=== PATIENT | female | born 1960 | race Caucasian/White ===

== ENCOUNTER 2018-03-17 01:07 | Outpatient (CLI) | payer BC, SELFPAY ==
--- NOTE | 2018-03-17 09:15 | DI.MRI_ITS ---
SYMPTOMS/DIAGNOSIS: FAMILY H/O CEREBRAL ANEURYSM, Z82.49 MRA OF THE BRAIN: Routine noncontrast MRA of the brain was performed. Comparison is 06/10/12. The distal internal carotid arteries are unremarkable without evidence of occlusion, aneurysm or significant stenosis. The anterior cerebral arteries are unremarkable without evidence of occlusion, aneurysm or significant stenosis. The middle cerebral arteries are unremarkable without evidence of occlusion, aneurysm or significant stenosis. The posterior cerebral arteries are unremarkable without evidence of occlusion, aneurysm or significant stenosis. The vertebral arteries and basilar artery are unremarkable without evidence of occlusion or aneurysm. IMPRESSION: Normal MRA of the brain.
== END 2018-03-17 01:27 ==
PROVIDERS: PCP Emergency Medicine; Visit Provider Emergency Medicine
DX: Z82.49 Family history of ischemic heart disease and other diseases of the circulatory system (principal)
CPT/HCPCS: 70544

== ENCOUNTER 2018-07-14 00:50 | Outpatient (CLI) | payer BC, SELFPAY ==
--- NOTE | 2018-07-14 15:35 | DI.MAMMO_ITS ---
SYMPTOM/DIAGNOSIS: SCREENING, Z12.31 MAMMOGRAMS: Mammograms were interpreted according to the usual protocol including computer analysis with CAD system, tomosynthesis and C view imaging. Comparison is made with prior examinations. Breast density, Category C. No suspicious masses or microcalcifications are seen. There is no definite evidence of malignancy. IMPRESSION: Negative mammogram. Routine screening is recommended. Category 1. MQSA ASSESSMENT OF FINDINGS: Negative. Category 1. Patient will receive a letter notifying them of these results. Bi-RADS category C. The breasts are heterogeneously dense, which may obscure small masses.
== END 2018-07-14 01:10 ==
PROVIDERS: PCP Emergency Medicine; Visit Provider Nurse Practitioner Women's Health
DX: Z12.31 Encounter for screening mammogram for malignant neoplasm of breast (principal)
CPT/HCPCS: 77063; 77067

== ENCOUNTER 2019-08-25 16:27 | Outpatient (REF) | payer BC, SELFPAY ==
--- NOTE | 2019-08-25 15:50 | PAPFT_PTH ---
PATIENT: Nydia Dowd LOC: [facility] U#:[id number] AGE/SX: 59/F ROOM: RE08/25/[address]: Shilpa Hernandez NP : 1960 BED: DIS: 08/25/2019 SPEC #: [id number] RECD: 08/26/19 12:46 STATUS: MICHELLE REMarley #: [id number] SAUL: 08/25/19 15:[address]: Shilpa Hernandez NP DEPT: [facility] Cytology RECD BY: Prema García ENTERED: 08/26/19 12:46 SP TYPE: PAPFT OTHR DR: Tim Huffman, DO Tissues: 1 - CX/ENDOCX FOR PAP SMEARS Procedures: PAP THIN PREP/UVM Screening Comments: [id number]
== END 2019-08-25 16:47 ==
LOC: LBN 16:27
PROVIDERS: PCP Emergency Medicine; Visit Provider Nurse Practitioner Women's Health
DX: Z12.4 Encounter for screening for malignant neoplasm of cervix (principal); R87.615 Unsatisfactory cytologic smear of cervix
CPT/HCPCS: 88142

== ENCOUNTER 2019-10-22 08:11 | Outpatient (CLI) | payer BC, SELFPAY ==
[2019-10-25 00:06] LABS: SARS-CoV-2 RNA Undetected (Undetected); SARS-CoV-2 Specimen Source Nasopharynx
== END 2019-10-22 08:31 ==
PROVIDERS: PCP Emergency Medicine; Visit Provider Emergency Medicine
DX: Z11.59 Encounter for screening for other viral diseases (principal)
CPT/HCPCS: U0003

== ENCOUNTER 2019-10-27 01:39 | Outpatient (CLI) | payer BC, SELFPAY ==
--- NOTE | 2019-10-27 06:15 | DI.MAMMO_ITS ---
EXAM: MAMMO SCREENING CLINICAL HISTORY: screening,z12.39 TECHNIQUE: Mammograms were interpreted according to the usual protocol including computer analysis w [employer] CAD system, tomosynthesis and C-view imaging. COMPARISON: 2010 through 2018 FINDINGS: The breasts are composed of heterogeneously dense fibroglandular densities, Breast Density category C . No suspicious masses or suspicious microcalcifications are seen. No skin thickening or abnormal axillary lymph nodes are seen. There has been no significant change from prior exams. IMPRESSION: BI-RADS Category 1: Negative mammogram Yearly screening mammography is recommended. Breast Density Category C, heterogeneously dense tissue which decreases the sensitivity of the mammog [place]. The mammogram demonstrates the patient's breast tissue is dense. Dense breast tissue is very common a nd is not abnormal but dense breast tissue can make it harder to find cancer on a mammogram. Also, de nse breast tissue may increase breast cancer risk. This information about the result of the mammogram report was provided to the patient to raise their awareness. Use this report when you speak with the patient about their risks for breast cancer, which includes their family history. At that time, you may recommend additional screening tests (Ultrasound or MRI) as they might be useful based on their r isk. A negative radiographic report should not delay biopsy if a dominant or clinically suspicious mass is present. Up to ten percent of cancers are not identified on mammography. A negative report may reinforce clinical impression. Adenosis and dense breasts may obscure an underlying neoplasm. False positive reports average 6 to 10%.
== END 2019-10-27 01:59 ==
PROVIDERS: PCP Emergency Medicine; Visit Provider Nurse Practitioner Women's Health
DX: Z12.31 Encounter for screening mammogram for malignant neoplasm of breast (principal); R92.2 Inconclusive mammogram
CPT/HCPCS: 77063; 77067

== ENCOUNTER 2020-01-21 10:11 | Outpatient (CLI) | payer BC, SELFPAY ==
[2020-01-25 23:59] LABS: Patient Race White; SARS-CoV-2 RNA Undetected (Undetected); SARS-CoV-2 Specimen Source Nasal
== END 2020-01-21 10:31 ==
PROVIDERS: PCP Emergency Medicine; Visit Provider Emergency Medicine
DX: Z20.828 Contact with and (suspected) exposure to other viral communicable diseases (principal)
CPT/HCPCS: U0003

== ENCOUNTER 2020-03-08 03:14 | Outpatient (CLI) | payer BC, SELFPAY ==
[2020-03-09 04:00] LABS: COVID-19 RT-PCR UVMMC Result Negative (Negative)
== END 2020-03-08 03:34 ==
PROVIDERS: PCP Emergency Medicine; Visit Provider Emergency Medicine
DX: Z20.828 Contact with and (suspected) exposure to other viral communicable diseases (principal)
CPT/HCPCS: U0003

== ENCOUNTER 2020-06-27 15:15 | Outpatient (REF) | payer BC, SELFPAY ==
[2020-06-27 21:05] LABS: Calculated LDL 90 mg/dL (<100); Cholesterol 192 mg/dL (<200); HDL Cholesterol 54 mg/dL (40-60); Triglyceride 241 mg/dL (<150)
[2020-06-27 21:13] LABS: Hemoglobin A1C 5.5 % (<5.7)
== END 2020-06-27 15:16 | disposition home or self-care (01) ==
LOC: LBN 15:15
PROVIDERS: PCP Emergency Medicine; Visit Provider Emergency Medicine
DX: Z00.00 Encounter for general adult medical examination without abnormal findings (principal); E11.9 Type 2 diabetes mellitus without complications; Z13.220 Encounter for screening for lipoid disorders
CPT/HCPCS: 80061; 83036

== ENCOUNTER 2020-11-07 15:09 | Outpatient (CLI) | payer BC, SELFPAY ==
--- NOTE | 2020-11-07 15:00 | DI.RAD_ITS ---
Exam(s) XR KNEE RT 4V AP,LAT,KARMEN,PAT EXAM: XR KNEE RT 4V AP,LAT,KARMEN,PAT CLINICAL HISTORY: s/p fall - pain and swelling right knee M25.561. TECHNIQUE: 2D digital imaging was performed. COMPARISON: No exams were available for comparison FINDINGS: BONES: No acute fracture is present. No bony destructive lesion is seen. JOINTS: The knee is normally aligned. Small joint effusion. SOFT TISSUE: Normal. IMPRESSION: 1. No acute fracture or dislocation. 2. Small joint effusion. DATA REPOSITORY: RADIATION DOSE DELIVERED:
== END 2020-11-07 15:29 ==
PROVIDERS: PCP Emergency Medicine; Visit Provider Nurse Practitioner Family
DX: M25.561 Pain in right knee (principal); M25.461 Effusion, right knee
CPT/HCPCS: 73564

== ENCOUNTER 2021-03-20 00:53 | Outpatient (CLI) | payer BC, SELFPAY ==
--- NOTE | 2021-03-20 07:00 | DI.MAMMO_ITS ---
Exam(s) MAMMO SCREENING EXAM: MAMMO SCREENING CLINICAL HISTORY: screening,z12.39 TECHNIQUE: Mammograms were interpreted according to the usual protocol including computer analysis w [facility] CAD system, tomosynthesis and C-view imaging. COMPARISON: FINDINGS: The breasts are heterogeneously dense. No dominant mass or clumped microcalcification is identified in either breast. The current examination is compared with previous examinations including October 27 and there has been no gross interval change in appearance in comparison with the prior studies. IMPRESSION: No specific evidence of malignancy at this time. Routine screening examinations are suggested at yea rly intervals in this age group according to the ACS ACR guidelines. BI-RADS Category 1 - Negative Breast Density - Category C - Heterogeneously dense
== END 2021-03-20 01:13 ==
PROVIDERS: PCP Emergency Medicine; Visit Provider Emergency Medicine
DX: Z12.31 Encounter for screening mammogram for malignant neoplasm of breast (principal); R92.8 Other abnormal and inconclusive findings on diagnostic imaging of breast
CPT/HCPCS: 77063; 77067

== ENCOUNTER 2021-07-06 02:08 | Outpatient (CLI) | payer BC, SELFPAY ==
[2021-07-06 13:12] LABS: Calculated LDL 129 mg/dL (<100); Cholesterol 216 mg/dL (<200); HDL Cholesterol 75 mg/dL (40-60); Triglyceride 62 mg/dL (<150)
== END 2021-07-06 02:09 | disposition home or self-care (01) ==
LOC: LOS 02:08
PROVIDERS: PCP Nurse Practitioner; Visit Provider Emergency Medicine
DX: E78.5 Hyperlipidemia, unspecified (principal)
CPT/HCPCS: 36415; 80061

== ENCOUNTER 2022-06-04 01:10 | Outpatient (CLI) | payer BC, SELFPAY ==
--- NOTE | 2022-06-04 06:15 | DI.MAMMO_ITS ---
Exam(s) MAMMO SCREENING EXAM: MAMMO SCREENING CLINICAL HISTORY: screening,z12.39 TECHNIQUE: Bilateral full field digital CC and MLO mammographic images were obtained with 3D tomosyn thesis and utilizing computer aided detection (CAD). COMPARISON: Available for comparison. FINDINGS: Masses/Architectural Distortion: None seen. Microcalcifications: No suspicious pleomorphic-type are seen. Skin Thickening/Nipple Retraction: None. IMPRESSION: 1. No significant interval change with no specific features of malignancy noted. 2. Unless there is more urgent need, screening mammography is recommended, as per [employer] [place] [employer] guidelines. BI-RADS Category 1 - Negative Breast Density - Category C - Heterogeneously dense Breast density category C or D implies that the patient has dense breast tissue. Dense breast tissue is very common and is not abnormal but dense breast tissue can make it harder to find cancer on a ma mmogram. Also, dense breast tissue may increase their breast cancer risk. This information about the result of the mammogram report was provided to the patient to raise their awareness. Use this report when you speak with the patient about their risks for breast cancer, which includes their family hist ory. At that time, you may recommend for more screening tests (Ultrasound or MRI) as they might be us eful based on their risk. A negative radiographic report should not delay biopsy if a dominant or clinically suspicious mass is present. Up to ten percent of cancers are not identified on mammography. A negative report may reinforce clinical impression. Adenosis and dense breasts may obscure an underlying neoplasm. False positive reports average 6 to 10%. Patient will receive a letter notifying them of these results.
== END 2022-06-04 01:30 ==
LOC: DI 01:10
PROVIDERS: PCP Nurse Practitioner Family; Visit Provider Nurse Practitioner Family
DX: Z12.31 Encounter for screening mammogram for malignant neoplasm of breast (principal)
CPT/HCPCS: 77063; 77067

== ENCOUNTER 2022-07-10 02:37 | Outpatient (CLI) | payer BC, SELFPAY ==
[2022-07-10 12:31] LABS: HCT 38.2 % (36.0-46.0); HGB 11.9 g/dL (11.2-15.7); MCHC 31.2 % (32.0-36.0); MCV 87 fL (80-95); MPV 10.6 fL (8.0-11.0); Platelet Count 238 10^3/uL (130-400); RBC 4.41 10^6/uL (3.93-5.22); RDW 15.9 % (11.7-14.6); RDW-SD 50.7 fL; WBC 2.99 10^3/uL (4.4-10.8)
[2022-07-10 14:03] LABS: ALT 33 U/L (14-59); AST 23 U/L (15-37); Albumin 3.5 g/dL (3.4-5.0); Alkaline Phosphatase 81 U/L (46-116); Anion Gap 7.5 mmol/L (3-11); BUN 16 mg/dL (7-18); Bilirubin, Total 0.3 mg/dL (0.2-1.0); CO2 29.5 mmol/L (21.0-32.0); CREATININE 0.8 mg/dL (0.55-1.02); Calcium 8.7 mg/dL (8.5-10.1); Calculated LDL 84 mg/dL (<100); Chloride 107 mmol/L (98-107); Cholesterol 185 mg/dL (<200); Estimated GFR 83.26 (mL/min/1.73m2); Glucose 84 mg/dL (74-106); HDL Cholesterol 91 mg/dL (40-60); Potassium 4.3 mmol/L (3.5-5.1); Sodium 144 mmol/L (136-145); Total Protein 6.7 g/dL (6.4-8.2); Triglyceride 52 mg/dL (<150)
== END 2022-07-10 02:38 | disposition home or self-care (01) ==
LOC: LOS 02:37
PROVIDERS: PCP Nurse Practitioner Family; Visit Provider Nurse Practitioner Family
DX: Z00.00 Encounter for general adult medical examination without abnormal findings (principal); E78.5 Hyperlipidemia, unspecified; F32.9 Major depressive disorder, single episode, unspecified
CPT/HCPCS: 36415; 80053; 80061; 85027

== ENCOUNTER → 2023-07-17 00:38 | Outpatient (CLI) | payer BC, SELFPAY ==
--- NOTE | 2023-07-17 12:38 | DI.MAMMO_ITS ---
Exam(s) MAMMO SCREENING EXAM: MAMMO SCREENING CLINICAL HISTORY: screening,z12.39 TECHNIQUE: Bilateral full field digital CC and MLO mammographic images were obtained with 3D tomosyn thesis and utilizing computer aided detection (CAD). COMPARISON: Available for comparison. FINDINGS: Masses/Architectural Distortion: None seen. Microcalcifications: No suspicious pleomorphic-type are seen. Skin Thickening/Nipple Retraction: None. IMPRESSION: 1. No significant interval change with no specific features of malignancy noted. 2. Unless there is more urgent need, screening mammography is recommended, as per [employer] [place] [employer] guidelines. BI-RADS Category 1 - Negative Breast Density - Category C - Heterogeneously dense Breast density category C or D implies that the patient has dense breast tissue. Dense breast tissue is very common and is not abnormal but dense breast tissue can make it harder to find cancer on a ma mmogram. Also, dense breast tissue may increase their breast cancer risk. This information about the result of the mammogram report was provided to the patient to raise their awareness. Use this report when you speak with the patient about their risks for breast cancer, which includes their family hist ory. At that time, you may recommend for more screening tests (Ultrasound or MRI) as they might be us eful based on their risk. A negative radiographic report should not delay biopsy if a dominant or clinically suspicious mass is present. Up to ten percent of cancers are not identified on mammography. A negative report may reinforce clinical impression. Adenosis and dense breasts may obscure an underlying neoplasm. False positive reports average 6 to 10%. Patient will receive a letter notifying them of these results.
== END ==
PROVIDERS: PCP Nurse Practitioner Family; Visit Provider Nurse Practitioner Family
DX: Z12.31 Encounter for screening mammogram for malignant neoplasm of breast (principal)
CPT/HCPCS: 77063; 77067

== ENCOUNTER 2024-07-06 00:33 | Outpatient (CLI) | payer BC, SELFPAY ==
[2024-07-06 12:52] LABS: HCT 41.6 % (36.0-46.0); HGB 12.9 g/dL (11.2-15.7); MCH 27.3 pg (27.0-33.0); MCV 88 fL (80-95); MPV 10.1 fL (8.0-11.0); Platelet Count 261 10^3/uL (130-400); RBC 4.72 10^6/uL (3.93-5.22); RDW 15.8 % (11.7-14.6); RDW-SD 51.2 fL; WBC 3.71 10^3/uL (4.4-10.8)
[2024-07-06 13:34] LABS: ALT 25 U/L (14-59); AST 20 U/L (15-37); Albumin 3.6 g/dL (3.4-5.0); Alkaline Phosphatase 85 U/L (46-116); Anion Gap 8.2 mmol/L (3-11); BUN 14 mg/dL (7-18); Bilirubin, Total 0.4 mg/dL (0.2-1.0); CO2 28.8 mmol/L (21.0-32.0); CREATININE 0.6 mg/dL (0.55-1.02); Calcium 8.9 mg/dL (8.5-10.1); Calculated LDL 174 mg/dL (<100); Chloride 109 mmol/L (98-107); Cholesterol 283 mg/dL (<200); Estimated GFR 100.17 (mL/min/1.73m2); Glucose 90 mg/dL (74-106); HDL Cholesterol 89 mg/dL (>or=50); Potassium 4.4 mmol/L (3.5-5.1); Sodium 146 mmol/L (136-145); TSH (W/Ref FT4) 1.08 uIU/mL (0.36-3.74); Total Protein 6.9 g/dL (6.4-8.2); Triglyceride 100 mg/dL (<150)
== END 2024-07-06 00:34 | disposition home or self-care (01) ==
LOC: LOS 00:33
PROVIDERS: PCP Nurse Practitioner Family; Visit Provider Nurse Practitioner Family
DX: Z00.00 Encounter for general adult medical examination without abnormal findings (principal); F32.9 Major depressive disorder, single episode, unspecified; E78.5 Hyperlipidemia, unspecified
CPT/HCPCS: 36415; 80053; 80061; 85027; 84443

== ENCOUNTER 2024-08-12 02:11 | Outpatient (CLI) | payer BC, SELFPAY ==
--- NOTE | 2024-08-12 07:45 | DI.MAMMO_ITS ---
Exam(s) MAMMO SCREENING EXAM: MAMMO SCREENING CLINICAL HISTORY: screening,z12.39 TECHNIQUE: Bilateral full field digital CC and MLO mammographic images were obtained with 3D tomosyn thesis and utilizing computer aided detection (CAD). COMPARISON: Available for comparison. FINDINGS: Masses/Architectural Distortion: No suspicious masses or areas of architectural distortion are presen t. Microcalcifications: No suspicious pleomorphic-type are seen. Skin Thickening/Nipple Retraction: None. IMPRESSION: 1. No significant interval change with no specific features of malignancy noted. 2. Unless there is more urgent need, screening mammography is recommended, as per [place] [employer] guidelines. BI-RADS Category 1 - Negative Breast Density - Category C - The breast are heterogeneously dense, which may obscure small masses. Breast density Category C or D implies that the patient has dense breast tissue. Dense breast tissue can make it harder to find cancer on a mammogram. Dense breast tissue is also associated with an incr eased risk of breast cancer. This information about the result of the mammogram report was provided to the patient to raise their awareness. Use this report when you speak with the patient about their risks for breast cancer, which includes their family history. At that time, you may recommend additional screening tests (Ultrasoun d or MRI) as these tests may add significant information. A negative radiographic report should not delay biopsy if a dominant or clinically suspicious mass is present. Up to ten percent of cancers are not identified on mammography. A negative report may reinforce clinical impression. Adenosis and dense breasts may obscure an underlying neoplasm. False positive reports average 6 to 10%. Patient will receive a letter notifying them of these results.
== END 2024-08-12 02:31 ==
LOC: DI 02:11
PROVIDERS: PCP Nurse Practitioner Family; Visit Provider Nurse Practitioner Family
DX: Z12.31 Encounter for screening mammogram for malignant neoplasm of breast (principal); R92.333 Mammographic heterogeneous density, bilateral breasts
CPT/HCPCS: 77063; 77067

== ENCOUNTER 2025-01-07 16:06 | Emergency (ER) | payer BC, SELFPAY ==
--- NOTE | 2025-01-07 16:00 | RT.EKG_ITS ---
APPROVED REPORT Exam: Resting ECG Reason for Exam: chest pain Patient Location: E HR:63 bpm ECG Measurements Heart Rate 63 AXIS NH 147 P 27 QRSd 92 QRS -4 QT 414 T 67 QTc 426 Conclusion Sinus rhythm...normal P axis, V-rate 60- 99 Probable left atrial enlargement...P >50mS, <-0.10mV V1 Consider anteroseptal infarct...Q >30mS, dimin R, V1-V2 No STEMI
[2025-01-07 16:08] VITALS: BP 158/104; PULSE 77; RESP 18; TEMP 36.4; O2SAT 97
[2025-01-07 17:30] VITALS: RESP 20
[2025-01-07] MEDS: Aspirin 81 MG CHEW 324 MG CH (17:35)
[2025-01-07 17:43] LABS: Abs Immature Grans 0.01 10^3/uL (0.0-0.06); HCT 39.8 % (36.0-46.0); HGB 12.7 g/dL (11.2-15.7); Immature Grans % 0.2 %; MCH 26.8 pg (27.0-33.0); MCHC 31.9 % (32.0-36.0); MCV 84 fL (80-95); MPV 9.8 fL (8.0-11.0); Platelet Count 260 10^3/uL (130-400); RBC 4.74 10^6/uL (3.93-5.22); RDW 14.8 % (11.7-14.6); RDW-SD 45.2 fL; WBC 4.17 10^3/uL (4.4-10.8)
[2025-01-07 18:05] LABS: ALT 29 U/L (14-59); AST 24 U/L (15-37); Albumin 3.7 g/dL (3.4-5.0); Alkaline Phosphatase 100 U/L (46-116); Anion Gap 10.7 mmol/L (3-11); BUN 18 mg/dL (7-18); Bilirubin, Total 0.3 mg/dL (0.2-1.0); CO2 26.3 mmol/L (21.0-32.0); Calcium 9.0 mg/dL (8.5-10.1); Chloride 105 mmol/L (98-107); Glucose 95 mg/dL (74-106); Lipase 32 U/L (<78); Magnesium 2.1 mg/dL (1.8-2.4); Potassium 3.7 mmol/L (3.5-5.1); Sodium 142 mmol/L (136-145); Total Protein 7.2 g/dL (6.4-8.2)
[2025-01-07 18:06] LABS: Troponin I < 4 ng/L (<or=51)
[2025-01-07 18:55] VITALS: BP 146/98; PULSE 68; RESP 16; O2SAT 98
[2025-01-07 19:02] LABS: D-Dimer 422 ng/mlFEU (<500)
[2025-01-07 19:05] VITALS: BP 138/92; RESP 16; O2SAT 99
[2025-01-07 19:06] LABS: Troponin I < 4 ng/L (<or=51)
--- NOTE | 2025-01-07 19:42 | DI.RAD_ITS ---
Exam(s) XR CHEST 2V PA LATERAL EXAM: XR CHEST 2V PA LATERAL CLINICAL HISTORY: chest pain. TECHNIQUE: 2D digital imaging was performed. COMPARISON: No exams were available for comparison FINDINGS: 2 views: Heart size is normal. The mediastinum is not widened. Lungs are clear. No infiltrates nor pleural effusions. IMPRESSION: No acute pulmonary findings. DATA REPOSITORY: RADIATION DOSE DELIVERED:
--- NOTE | 2025-01-07 19:46 | W.ED.GENAD ---
Discharge Plan Disposition Patient Disposition: Home Condition: Stable Discharge Details Clinical Impression: Chest pain of uncertain etiology Primary Care Provider: Richa Samuel ED Provider: Edilberto Salguero Home Meds and New Rx's Prescriptions: Continued pravastatin 20 mg tablet 20 mg PO QHS Qty: 90 3RF cholecalciferol (vitamin D3) 25 mcg (1,000 unit) capsule 25 mcg PO DAILY aspirin [Aspir-Low] 81 MG tablet,delayed release (DR/EC) 1 tab PO DAILY Discharge Instructions Instructions: Chest Pain, Adult ED Additional Instructions: You were seen in the emergency department for your chest pain, your cardiac workup was negative there is no blood clot in your lungs and your imaging shows no major abnormalities, my recommendations are to seek a referral to cardiology from your primary care provider, continue your activities as tolerated, if you have worsening chest pain especially with shortness of breath, feelings of near fainting, sweating or any other emergent concerns please return to the ER at once. Referrals: Richa Samuel NP [Primary Care Provider, Medicine] Discharge Data Discharge Date/Time-TO BE ENTERED AT DEPARTURE: 01/07/25 21:08 HPI General Date/Time Provider Initiated Documentation: 01/07/25 16:15. HPI Narrative: 64 year-old female presents to ED today by POV/ambulating with a chief complaint of L chest pain around her breast, and some shortness of breath with onset today. Quality described as sharp L chest pain, no radiation to fever, cough, dizziness, diaphoresis, nausea/vomiting, abdominal pain. Severity is described as moderate. Palliating factors include nothing specific attempted. Provoking factors include nothing specific. Events leading up to the incident/Associated Symptoms: Patient endorses FHx of cardiac disease. Patient not anticoagulated. Related Data Home Medications Medication Instructions Recorded Confirmed aspirin 81 mg tablet,delayed 1 tab PO DAILY 05/13/14 01/07/25 release (Aspir-Low) cholecalciferol (vitamin D3) 25 25 mcg PO DAILY 07/08/22 01/07/25 mcg (1,000 unit) capsule pravastatin 20 mg tablet 20 mg PO QHS #90 tabs 07/12/24 01/07/25 Previous Rx's Medication Instructions Recorded pravastatin 20 mg tablet 20 mg PO QHS #90 tabs 07/12/24 Allergies Allergy/AdvReac Type Severity Reaction Status Date / Time nalbuphine HCl (From Nubain) Allergy Severe STOPPED Verified 01/07/25 16:15 BREATHING codeine AdvReac Intermediate HALLUCINATI Verified 01/07/25 16:15 ONS oxycodone AdvReac Intermediate FLOATING Verified 01/07/25 16:15 FEELING General Stated Complaint: Chest Pain FRANCESCO: 3 Review of Systems All systems reviewed & are unremarkable except as noted in HPI and below Exam Narrative Exam Narrative: GENERAL APPEARANCE: Well-nourished, non-toxic, awake and alert, atraumatic, no acute distress. SKIN: Warm, pink, dry, intact, without rashes/lesions/ulcerations. HEAD: Normocephalic, atraumatic, normal hair distribution for gender/age. EYES: Normal conjunctiva, no exudates on lids/lashes. ENT: Nares patent, no circumoral cyanosis, no facial swelling NECK: Supple, trachea midline, painless cervical ROM. LUNGS/CHEST: Lungs CTA bilaterally, non-labored respirations, normal A/P diameter, symmetrical expansion, no chest wall deformity HEART (CV/PV): Regular rate and rhythm without murmur, no peripheral edema, no JVD. ABDOMEN: Soft, non-distended, no guarding. MSK: Normal ROM, no swelling/deformity to bilateral UEs or LEs, moving all extremities without weakness, no cyanosis, spine midline without tenderness, normal curvature. NEURO: Mental Status AAOx4 - alert to person, place, time, events No facial droop, no forehead involvement. Motor: No focal weakness - strength 5/5 in bilateral UEs and LEs, proximal and distal, symmetric. Sensory: sensation intact to light touch globally. Gait normal: patient ambulated without ataxia into ED room. PSYCH: euthymic, cooperative, pleasant, appropriate speech Course Vital Signs Vital signs: Vital Signs Temperature 36.4 C L 01/07/25 16:08 Pulse 77 01/07/25 16:08 Respiratory Rate 18 01/07/25 16:08 Blood Pressure 158/104 H 01/07/25 16:08 Pulse Oximetry 97 01/07/25 16:08 Temperature 36.4 C L 01/07/25 16:08 Temperature Source Temporal Artery Scan 01/07/25 16:08 Pulse 68 01/07/25 18:55 Respiratory Rate 16 01/07/25 19:05 Respiratory Effort Normal, Non-Labored 01/07/25 19:05 Respiratory Depth Normal 01/07/25 19:05 Respiratory Pattern Normal 01/07/25 19:05 Blood Pressure 138/92 H 01/07/25 19:05 Blood Pressure Mean 107 01/07/25 19:05 Blood Pressure Position Sitting 01/07/25 19:05 Pulse Oximetry 99 01/07/25 19:05 Oxygen Delivery Method Room Air 01/07/25 19:05 Oxygen Flow Rate 0 01/07/25 19:05 Pain Level 0 01/07/25 19:05 Lab/Test Results Lab/Test Results: Laboratory Tests Range/Units 01/07/25 01/07/25 17:30 18:35 WBC (4.4-10.8) 10^3/uL 4.17 L RBC (3.93-5.22) 10^6/uL 4.74 Hgb (11.2-15.7) g/dL 12.7 Hct (36.0-46.0) % 39.8 MCV (80-95) fL 84 MCH (27.0-33.0) pg 26.8 L MCHC (32.0-36.0) % 31.9 L RDW (11.7-14.6) % 14.8 H Plt Count (130-400) 10^3/uL 260 MPV (8.0-11.0) fL 9.8 Immature Gran % % 0.2 Neutrophils % % 62.1 Lymphocytes % % 27.8 Monocytes % % 7.2 Eosinophils % % 1.7 Basophils % % 1.0 Nucleated RBC % (0.0-0.3) % 0.0 Absolute Neutrophils (1.2-6.7) 10^3/uL 2.59 Absolute Lymphocytes (1.2-3.4) 10^3/uL 1.16 L Absolute Monocytes (0.1-0.8) 10^3/uL 0.30 Absolute Eosinophils (0.0-0.7) 10^3/uL 0.07 Absolute Basophils (0.0-0.2) 10^3/uL 0.04 D-Dimer (<500) ng/mlFEU 422 Sodium (136-145) mmol/L 142 Potassium (3.5-5.1) mmol/L 3.7 Chloride (98-107) mmol/L 105 Carbon Dioxide (21.0-32.0) mmol/L 26.3 Anion Gap (3-11) mmol/L 10.7 BUN (7-18) mg/dL 18 Creatinine (0.55-1.02) mg/dL 0.5 L Est GFR (CKD-EPI 2020) (mL/min/1.73m2) 104.67 Glucose (74-106) mg/dL 95 Calcium (8.5-10.1) mg/dL 9.0 Magnesium (1.8-2.4) mg/dL 2.1 Total Bilirubin (0.2-1.0) mg/dL 0.3 AST (15-37) U/L 24 ALT (14-59) U/L 29 Alkaline Phosphatase (46-116) U/L 100 Troponin I (<or=51) ng/L < 4 < 4 NT-Pro-B Natriuret Pep (<300) pg/mL 83 Total Protein (6.4-8.2) g/dL 7.2 Albumin (3.4-5.0) g/dL 3.7 Lipase (<78) U/L 32 Medical Decision Making This dictation utilizes [id number] dictation software and may contain unedited grammatical errors. 64 year-old female presents to ED today by POV/ambulating with a chief complaint of L chest pain around her breast, and some shortness of breath with onset today. Quality described as sharp L chest pain, no radiation to fever, cough, dizziness, diaphoresis, nausea/vomiting, abdominal pain. Severity is described as moderate. Palliating factors include nothing specific attempted. Provoking factors include nothing specific. Events leading up to the incident/Associated Symptoms: Patient endorses FHx of cardiac disease. Patients' medical history: lymphedema, hx abdominal hysterectomy. Family and social history: noncontributory. Pertinent exam findings / vital signs include benign cardiopulmonary exam, benign abdomen, nontoxic, neuro intact. Differential / pathologies of concern include ACS, pneumonia, PE, costochondritis, pleurisy, less likely pancreatitis or biliary colic or gastritis. Diagnostic studies of: - CBC, CMP, D-dimer, magnesium, serial troponins, BNP, lipase, EKG, x-ray chest. - CBC is unremarkable - D-dimer negative - CMP without actionable abnormality - Magnesium within normal limits - Serial troponins negative at 4 - BNP is 83 - Lipase negative - X-ray chest shows no acute pathology - EKG shows sinus rhythm at rate of 63 with P waves followed by a narrow complex QRS with normal axis, good R wave progression no ST changes of ischemia Interventions of: -324 mg chewable aspirin. ED Course/Assessment/Plan: 64-year-old female presents with chest pain without personal cardiac history with family history, her heart score is low risk, her cardiac workup is negative D-dimer is negative, x-ray chest shows no acute abnormality counseled on following up with primary care for possible referral to cardiology for stress echo, recommend continue activities as tolerated, take a break with any pains and return for any concerning chest pain or any other emergent concerns. Findings not consistent with ACS, PE, pneumonia, respiratory distress, pancreatitis or biliary colic. Disposition of chest pain of uncertain etiology. Patient verbalized understanding of the plan and return to ED criteria and engaged in shared decision making. Medical Records Medical records reviewed: Yes I reviewed the patient's medical records. Imaging Data Radiologic Study: Attestation: I personally reviewed and interpreted this imaging study as follows: Imaging: X-Ray Radiologist's impression: Exam: XR Chest Exam date and time: 01/07/2025 7:42 PM Age: 64 years old Clinical indication: Other: Chest pain TECHNIQUE: Imaging protocol: Radiologic exam of the chest. Views: 2 views. COMPARISON: No relevant prior studies available. FINDINGS: Lungs: Unremarkable. No consolidation. Pleural spaces: Unremarkable. No pleural effusion. No pneumothorax. Heart/Mediastinum: Unremarkable. No cardiomegaly. Bones/joints: Unremarkable. IMPRESSION: No acute findings. Dictated and Authenticated by: Jonny Childs MD. Lab Data Lab results reviewed: Yes I reviewed the patient's lab results. Labs: Laboratory Tests Range/Units 01/07/25 01/07/25 17:30 18:35 WBC (4.4-10.8) 10^3/uL 4.17 L RBC (3.93-5.22) 10^6/uL 4.74 Hgb (11.2-15.7) g/dL 12.7 Hct (36.0-46.0) % 39.8 MCV (80-95) fL 84 MCH (27.0-33.0) pg 26.8 L MCHC (32.0-36.0) % 31.9 L RDW (11.7-14.6) % 14.8 H Plt Count (130-400) 10^3/uL 260 MPV (8.0-11.0) fL 9.8 Immature Gran % % 0.2 Neutrophils % % 62.1 Lymphocytes % % 27.8 Monocytes % % 7.2 Eosinophils % % 1.7 Basophils % % 1.0 Nucleated RBC % (0.0-0.3) % 0.0 Absolute Neutrophils (1.2-6.7) 10^3/uL 2.59 Absolute Lymphocytes (1.2-3.4) 10^3/uL 1.16 L Absolute Monocytes (0.1-0.8) 10^3/uL 0.30 Absolute Eosinophils (0.0-0.7) 10^3/uL 0.07 Absolute Basophils (0.0-0.2) 10^3/uL 0.04 D-Dimer (<500) ng/mlFEU 422 Sodium (136-145) mmol/L 142 Potassium (3.5-5.1) mmol/L 3.7 Chloride (98-107) mmol/L 105 Carbon Dioxide (21.0-32.0) mmol/L 26.3 Anion Gap (3-11) mmol/L 10.7 BUN (7-18) mg/dL 18 Creatinine (0.55-1.02) mg/dL 0.5 L Est GFR (CKD-EPI 2020) (mL/min/1.73m2) 104.67 Glucose (74-106) mg/dL 95 Calcium (8.5-10.1) mg/dL 9.0 Magnesium (1.8-2.4) mg/dL 2.1 Total Bilirubin (0.2-1.0) mg/dL 0.3 AST (15-37) U/L 24 ALT (14-59) U/L 29 Alkaline Phosphatase (46-116) U/L 100 Troponin I (<or=51) ng/L < 4 < 4 NT-Pro-B Natriuret Pep (<300) pg/mL 83 Total Protein (6.4-8.2) g/dL 7.2 Albumin (3.4-5.0) g/dL 3.7 Lipase (<78) U/L 32 Quality:[facility] Health Related Social Needs: Health related social needs details NA PFSH All Active Problems (Updated 01/07/25 @ 20:41 by OCTAVIA Morin) Chest pain of uncertain etiology (Acute) COVID-19 (Acute) 09/24/21 Vaccinated, booster x2 Mass in armpit (Acute) Mass (Acute) Encounter for annual physical exam (Acute) Depression (Chronic) Grief (Chronic) Conductive hearing loss of left ear with unrestricted hearing of right ear (Acute) Mixed stress and urge urinary incontinence (Acute) Tubular adenoma of colon (Acute ~07/07/18) 07/07/18 [facility] [place]- Primary malignant neoplasm of cervix (Acute 02/06/90) Urge incontinence (Acute 04/17/16) start w/ bladder retraining. This has not been helpful Urology referral 06/2018 Lymphedema of right lower extremity (Acute 12/27/15) secondary to inguinal node dissection Hyperlipidemia (Acute) VAP XOL testing showed light fluffy LDL particles, indicating low risk. pt on baby ASA daily History of total abdominal hysterectomy (Acute) pt had radical hysterectomy for cervical cancer; left ovary remains Atrophic vaginitis (Acute 04/07/15) Medical History (Updated 01/07/25 @ 20:41 by OCTAVIA Morin) Family history of premature CAD (12/27/15) Father CT age 49 Brother with CT age 50 Family history of cerebral aneurysm Mother and sister. Neg MRI Elevated lipids took simvistatin with good results. stopped 2011. on daily ASA. 2013 results of LDL increasing. resumed Simvistatin Adenocarcinoma of cervix 1990. Dx at time of PP pap. Poorly differentiated. S/P radical hysterectomy with XRT and brachytherapy. No recurrences. Had transposition of one ovaryat time of surgery. Surgical History History of hysterectomy with unilateral oophorectomy 1990, left ovary remains Colonoscopy - MAC 2012 at [facility] [place]. Issues with effects of XRT/brachytherapy so needed procedure under anesthesia. Family History (Updated 07/14/24 @ 12:20 by Brandie Carrizales) Father , AGE 49 Myocardial infarction Heart disease Mother , AGE 79 Arterial aneurysm Sister Alcohol use disorder Dementia Sister , Age 66 Dementia Brother , Age 60 Thyroid disorder Heart disease Hypertension Son No problems noted. Maternal Grandmother Cancer skin Maternal Grandfather No problems noted. Paternal Grandmother No problems noted. Paternal Grandfather No problems noted. Social History (Updated 07/14/24 @ 12:18 by Brandie Carrizales) Smoking/Tobacco Use Status: Never Tobacco: How many years used: 0 Second Hand Exposure: Yes Smoking risk assessment performed?: Yes Alcohol Intake: current Alcohol Intake frequency: holidays/special occasions only Alcohol type: beer Drug use: Never Substance use type: does not use Adopted: No Caregiver/Support person: No Household members: none Housing: house Number of Children: 1 number of grandchildren: 0 Communication Needs: None Education Level: college Details: Masters Do you need help understanding health information?: Rarely current occupation: Retired Pets and animals: No Sexually active: No Do you think of yourself as: straight/heterosexual Current gender identity: female What is your relationship status?: How often do you talk on the phone with friends or family?: three or more times per week How often do you get together with friends or relatives?: three or more times per week How often do you attend faith or confucianism services?: 1-3 times per year Do you belong to any clubs or organized social groups?: yes Panel score (0-1 are the most socially isolated patients): 2 What type of physical activity do you participate in: walking and yoga Duration: 30-45 minutes/day Frequency: 3-4 times per week Meghan/Zoroastrian: Druze Special meghan needs: No Agree to transfusion: Yes Seatbelt use: always Helmet use: Yes Helmet use: always Drive intox or ride w/intox bull driver: No Working smoke detector in home: Yes Carbon monox detector in home: Yes Firearms in home: No Do you feel safe at home: Yes Victim of physical abuse: No Victim of emotional abuse: No Victim of sexual abuse: No Would you like helpful sources: No Female Reproductive History Menstrual Menopause type: surgical History History 1 Para 1 Hx # Term Pregnancies Multiple births Hx # Pregnancies Ectopic pregnancies AB induced Hx Number of Living Children AB spontaneous
[2025-01-07 21:03] VITALS: BP 162/105; PULSE 83; RESP 16; TEMP 36.6; O2SAT 99
== END 2025-01-07 21:08 | disposition home or self-care (01) ==
PROVIDERS: Emergency Provider Physician Assistant; PCP Nurse Practitioner Family
DX: R07.9 Chest pain, unspecified (principal); R03.0 Elevated blood-pressure reading, without diagnosis of hypertension; Z82.49 Family history of ischemic heart disease and other diseases of the circulatory system
CPT/HCPCS: 99284 ×2; 36415; 80053; 83690; 93005; 71046; 83735; 83880; 84484; 85025; 85379; 93010

== ENCOUNTER → 2025-01-17 02:31 | Outpatient (CLI) | payer BC, SELFPAY ==
--- NOTE | 2025-01-17 05:48 | ETT_ITS ---
APPROVED REPORT Exam: Exercise Treadmill Patient Location: Out-Patient Room/Bed: Stress Nurse: Gayle Lindo RN Ordering Provider:MILDRED MCCOY, Contact Number: [phone] BMI: 20.22 Baseline Rhythm: Sinus Rhythm Indications: Chest pain Medical History Medical History: Depression, HLD, family hx of CAD, radical hysterectomy (cervical cx) Cardiac Medications: Aspirin, pravastatin Allergies: Oxycodone, codeine, nalbuphine HCl Cardiac Risk Factors: Family hx, HTN, HLD Previous Cardiac Procedures: None Pretest Chest Pain Characteristics: None Exercise History: Physically active Physical Disabilities: None Lung Sounds: Clear to auscultation Heart Sounds: Regular Stress Test Details Test: Exercise stress testing was performed using a Lang protocol. Rest Stress HR Resting HR Supine: 62 bpm Max Heart Rate (APMHR): 156 bpm Resting HR Standin bpm Target HR (85% APMHR): 133 bpm Max HR Achieved: 154 bpm % of APMHR: 99 Recovery HR: 86 bpm HR response to stress: Normal HR response to stress BP Resting BP Supine: 112/84 mmHg Resting BP Standin/88 mmHg Max BP: 186/90 mmHg Recovery BP: 120/88 mmHg BP response to stress: Normal blood pressure response to stress. ECG Resting ECG: Sinus Rhythm Ectopy: None Stress ECG: Sinus Tachycardia ST Change: No significant ST segment changes noted Arrhythmia: None Recovery ECG: Sinus Rhythm Recovery ST Change: No significant ST segment changes noted Recovery Arrhythmia: None Clinical Reason for Termination: Target HR Achieved, mild SOB Stress Symptoms: Mild SOB Exercise duration: 08 min14 sec Highest Stage Reached: Stage 3: 3.4 mph at 14% grade. Exercise capacity: 10.16 METs Angina Score: None Chapa Treadmill Score: 10.16 Rate Pressure Product: [id number] Stress ECG Conclusion 1. Resting electrocardiogram was normal 2. Patient exercised on the Lang protocol and completed workload of 10 METS 3. Normal heart rate and blood pressure response to exercise. The patient achieved 99% of maximal predicted heart rate for age 4. There was no electrocardiographic evidence of myocardial ischemia 5. There were no dysrhythmias Chapa Treadmill Score is 10.16 which is Low risk. Stress Test Summary STAGE Time (mins) Speed (mph) Grade (%) HR BP SpO2 SYMPTOMS METS Supine 62 112/84 95% Standing 73 126/88 1 3 1.7 10 107 134/82 96% Mild SOB 4.5 2 6 2.5 12 129 7 1 min recovery 119 186/90 98% 3 min recovery 78 172/86 98% 6 min recovery 86 120/88 98% Treadmill stopped r/t target HR achieved and patient report of mild SOB/request to stop. All symptoms resolved by test end. Patient left ambulatory in no apparent distress.
== END ==
LOC: DI 02:31
PROVIDERS: PCP Nurse Practitioner Family; Visit Provider Nurse Practitioner Family
DX: R07.9 Chest pain, unspecified (principal)
CPT/HCPCS: 93017

== ENCOUNTER → 2025-01-20 02:37 | Outpatient (CLI) | payer BC, SELFPAY ==
--- NOTE | 2025-01-20 07:30 | DI.US_ITS ---
APPROVED REPORT EXAM: Comprehensive 2D, Doppler, and color-flow Echocardiogram Patient Location: Out-Patient [employer] Coordinator: Shyanne Hoover RDCS (AE) Indications: Chest pain Other Information Study Quality: Adequate Conclusion Normal left ventricular wall thickness and chamber size. Ejection fraction is 59%. Wall motion is normal Normal right ventricular size and function Both atria are normal in size There is no structural or hemodynamically significant valvular disease Normal estimated right ventricular systolic pressure 19 mmHg Ascending aorta measures 3.49 cm Wall motion Left Ventricle The left ventricle is normal size. The left ventricular systolic function is normal. The left ventricular ejection fraction is within the normal range. There is normal left ventricular wall thickness. There is normal LV segmental wall motion. There is no ventricular septal defect visualized. LVEF is 59%. Right Ventricle The right ventricle is normal size. The right ventricular systolic function is normal. Atria The left atrium size is normal. The right atrium size is normal. The interatrial septum is intact with no evidence for an atrial septal defect. Aortic Valve The aortic valve is normal in structure. Aortic valve is trileaflet. There is no aortic valvular stenosis. No aortic regurgitation is present. Mitral Valve The mitral valve is normal in structure. No evidence of mitral valve stenosis. Trace mitral regurgitation. Tricuspid Valve The tricuspid valve is normal in structure. There is no tricuspid valve stenosis. Trace tricuspid regurgitation. The RVSP is 19.3_ mmHg. Pulmonic Valve The pulmonary valve is normal in structure. There is no pulmonic valvular stenosis. Trace pulmonic regurgitation. Great Vessels The aortic root is normal in size. The ascending aorta is mildly dilated. Aortic arch is normal in caliber. IVC is normal in size and collapses >50% with inspiration. Pericardium There is no pericardial effusion. 2D Dimensions IVSD d PLAX 0.83 cm F: 0.6-1.0 Ao Root d 2.97 cm F: 2.7 - 3.3 LVPW d PLAX 0.80 cm F: 0.6 - 1.0 Ao Asc Diam d 3.49 cm F: 2.3 - 3.1 LVID d PLAX 4.40 cm F: 3.8 - 5.2 LVDs 3.04 cm F: 2.2 - 3.5 LV EF Teichholz 58.5 % FS 30.74 % LV EDV (Teich) 87.5 mL LV ESV (Teich) 36.3 mL M-Mode TAPSE 1.97 cm (M/F) >1.7 Auto EF LV EDV A4C 86.9 mL LV EDV A2C 97.1 mL LV EDV BP 92.4 mL LV ESV A4C 36.6 mL LV ESV A2C 40.2 mL LV ESV BP 38.8 mL LVEF(%) A4C 57.9 % LVEF(%) A2C 58.6 % LVEF(%) BP 58.0 % LV SV A4C 50.4 ml LV SV A2C 56.9 ml LV SV BP 53.6 ml LV CO A4C 2.9 L/min LV CO A2C 3.2 L/min LV CO BP 3.0 L/min HR A4C 56.96 BPM HR A2C 55.97 BPM LV EDV Index (BP) LA Volume LA Length A4C 4.2 cm LA Length A2C 4.8 cm LA Area A4C s 11.69 cm2 LA Area A2C s 16.34 cm2 LA Vol A4C A-L 27.78 mL LA Vol A2C A-L 46.77 mL LA Vol Biplane A-L 38.8 mL LA Vol/BSA A4C A-L LA Vol/BSA A2C A-L LA Vol/BSA BP A-L 22.2 mL/m2 LA Vol A4C MOD 26.2 mL LA Vol A2C MOD 43.1 mL LA Vol BP MOD 36.0 mL RA Volume RA Area A4C 13.7 cm2 RA ESV A4C (A-L) 35.0mL RA Vol/BSA A4C A-L RA Length A4C 4.5 cm RA ESV A4C (MOD) 32.0mL LV Diastology MV E' medial 0.066 (>0.07 m/s) MV E Vmax 0.68 (0.4-1.3 m/s) MV E/E' MED 10.29 (<14) MV A Vmax 0.70 (0.4-1.3 m/s) MV E' lateral 0.082 (>0.1 m/s) E/A Ratio 1.0 MV E/E' LAT 8.23 (<14) MV E' Average 0.074 m/s MV E/E'(average) 9.15 Aortic Valve AoV Vmax 1.01 m/s LVOT Vmax 0.87 m/s AoV Peak Grad 4.1 mmHg LVOT Peak Grad 3.0 mmHg AoV Area (Vmax) 2.76 cm2 LVOT VTI 0.198 m AoV VTI 0.264 m LVOT Mean Grad 1.6 mmHg AoV Mean Ricardo. 0.72 m/s LVOT SV 63.60 mL AoV Mean Grad 2.3 mmHg LVOT Diam s 2.00 cm AoV Area (VTI) 2.41 cm2 AV Regurg Peak Gr. 4.09 mmHg Velocity Ratio 0.86 Mitral Valve MV DT 267 (160-240 msec) MV Vmax TIPS 0.65 m/s MV Mean Grad 0.6 (<2mmHg) MV VTI 0.222 m Pulmonary Valve PV Vmax 0.64 (0.5-1.5 m/s) RVOT Vmax 0.56 m/s PV Peak Grad 1.7 mmHg RVOT Peak Gr. 1.2 mmHg PV Mean Ricardo 0.50 m/s RVOT VTI 0.137 m PV Mean Grad 1.1 mmHg RVOT Mean Gr. 0.8 mmHg Tricuspid Valve RA Pressure 3.00 mmHg TR Vmax 2.02 m/s TV S' 0.13 m/s TR Peak Grad 16.3 mmHg RVSP (TR) 19.3 mmHg
== END ==
LOC: DI 02:37
PROVIDERS: PCP Nurse Practitioner Family; Visit Provider Nurse Practitioner Family
DX: R07.9 Chest pain, unspecified (principal)
CPT/HCPCS: 93306